=== PATIENT | female | born 1970 | race African-American/Black ===

== ENCOUNTER → 2020-08-10 | Outpatient (CLI) | payer OTHER ==
--- NOTE | 2020-08-10 17:59 | MR ---
EXAMINATION TYPE: MR knee LT wo con DATE OF EXAM: 08/10/2020 COMPARISON: None HISTORY: Medial left knee pain. Effusion of joint of left knee. The anterior and posterior cruciate ligaments are intact. There is moderate size knee joint effusion. The collateral ligaments are intact. Joint spaces are fairly normal. I see no bony destructive proce ss. There is no evidence of a fracture. Patella tendon is intact. There is mild subcutaneous edema an terior to the patella tendon. The medial and lateral menisci appear fairly normal. There is no evidence of a soft tissue mass. Ther e is 4 x 2 cm popliteal cyst. IMPRESSION: Moderate size knee joint effusion with popliteal cyst. No evidence of meniscal or ligamentous tear. No fracture seen.
== END | disposition home or self-care (01) ==
LOC: RADMRIMAIN 12:36
PROVIDERS: ATTEND Internal Medicine Rheumatology
DX: M25.462 Effusion, left knee (principal); M71.22 Synovial cyst of popliteal space [Baker], left knee